=== PATIENT | male | born 2000 | race Caucasian/White ===

== ENCOUNTER 2019-12-29 17:33 | Emergency (ER) | payer OTHER, SELFPAY ==
[2019-12-29 17:36] VITALS: BP 126/44; PULSE 90; RESP 20; TEMP 36.8; O2SAT 99
--- NOTE | 2019-12-29 17:56 | ED.ABDPAIN ---
HPI - Abdominal Pain General Chief Complaint: Abdominal Pain Stated Complaint: low abd pain, blood in stool Time Seen by Provider: 12/29/19 17:35 Source: patient Mode of arrival: ambulatory Limitations: no limitations History of Present Illness HPI narrative: Patient is a 19-year-old male who presents with rectal bleeding noting that he had a stool yesterday and today noting red blood per rectum patient denies any pain or other complaints or similar occurrence in the past has not taken anything for his symptoms and on arrival to emergency department is resting comfortably in the room in no distress Related Data Allergies Allergy/AdvReac Type Severity Reaction Status Date / Time No Known Allergies Allergy Verified 12/29/19 17:47 Review of Systems Review of Systems: All systems reviewed & are unremarkable except as noted in HPI and below PMFSH Surgical History Surgical History (Updated 12/29/19 @ 18:00 by Grant Munson PA-C) H/O abdominal surgery Social History Social History (Updated 12/29/19 @ 18:00 by Grant Munson PA-C) Smoking status: Never smoker Exam Narrative: Exam Narrative: GENERAL: Well-appearing, well-nourished, and in no acute distress. HEAD: Normocephalic, atraumatic. EYES: PERRLA and EOMI. ENT: Nares clear, no rhinorrhea or epistaxis. Mucous membranes moist. Oropharynx without tonsillar hypertrophy exudate or other lesions. CHEST: Clear to auscultation. No respiratory distress. No wheezes rales or rhonchi HEART: Regular rate and rhythm. No murmur heard. Normal peripheral pulses. ABDOMEN: Soft, nontender, nondistended EXTREMITIES: Normal range of motion. No edema. SKIN: Warm, dry, no rash. NEURO: No focal deficits. Alert and oriented x3. PSYCH: Normal mood and affect. Course Course Emergency Course: Patient in the room in no distress aware of case findings treatment plan and diagnosis was hydrated in the emergency department aware of blood results and testing Vital Signs Vital signs: Vital Signs Temperature 98.3 F 12/29/19 17:36 Pulse Rate 90 12/29/19 17:36 Respiratory Rate 20 12/29/19 17:36 Blood Pressure 126/44 L 12/29/19 17:36 Pulse Oximetry 99 12/29/19 17:36 Temperature 98.3 F 12/29/19 17:36 Pulse Rate 90 12/29/19 17:36 Respiratory Rate 20 12/29/19 17:36 Blood Pressure 126/44 L 12/29/19 17:36 Pulse Oximetry 99 12/29/19 17:36 MDM - Abdominal Pain MDM Narrative Medical decision making narrative: Patient in the room in no distress has been hydrated otherwise no high risk changes in the blood work treated for rhabdo which was mild in nature advised to hydrate likely due to his intense workout. Patient will be referred to gastroenterology for follow-up of his rectal bleeding and provided with reasons to return is hemodynamically stable and felt appropriate for outpatient reevaluation Discharge Plan Discharge Clinical Impression: Acute kidney injury, Acute dehydration, Rectal bleed Patient Disposition: Home, Self-Care Condition: Stable Instructions: Antibiotic Form, Rectal Bleeding (ED) Additional Instructions: Follow up with your primary care doctor tommorrow in the next 7 days. Go to ER for worsening pain, nausea/vomitting, fever/chills, chest pain, shortness of breath, blood in stools or urine, etc. or any other concerns. Stay well-hydrated Take any prescribed medications as directed. Follow-up with gastroenterology in the next 7 days If you do not have a drug allergy to tylenol or motrin and can tolerate it then take tylenol or motrin as needed for discomfort/pain. Prescriptions: New famotidine [Pepcid] 20 mg tablet 20 mg PO BID Qty: 10 RF: 0 Follow-up/Referrals: Humberto Davison MD [Physician] - PHYSICIAN,DICER OPERATOR [Primary Care Provider] - Stand Alone Forms: Work/School Release IP
[2019-12-29] MEDS: SODIUM CHLORIDE 0.9% IV 1,000 ML 999 ML IV CONT ×2 (18:00→19:10)
[2019-12-29 18:19] LABS: Basophils Percent Auto 0.6 % (0.2-1.2); Eosinophils Percent Auto 0.6 % (0-4.4); Hematocrit 42.4 % (42.0-52.0); Hemoglobin 14.2 g/dL (14.0-18.0); Immature Granulocyte Absolute 0.02 K/mm3 (0.00-0.031); Immature Granulocyte Percent A 0.3 % (0-0.5); Lymphocytes Absolute Auto 1.21 K/mm3 (0.9-3.2); Lymphocytes Percent Auto 16.7 % (18.3-44.2); Mean Corpuscular HGB Conc 33.5 g/dl (32-36); Mean Corpuscular Hemoglobin 29.4 pg (26-34); Mean Corpuscular Volume 87.8 fl (80-100); Mean Platelet Volume 10.9 fl (7.4-10.4); Monocytes Absolute Auto 0.9 K/mm3 (0.1-0.6); Monocytes Percent Auto 12.3 % (2.6-8.5); Neutrophils Percent Auto 69.5 % (45.5-73.1); Platelet Count Result 223 k/mm3 (150-375); Red Blood Count 4.83 M/mm3 (4.6-6.20); Red Cell Distribution Width 13.2 % (11.5-14.5); White Blood Count 7.2 K/mm3 (4.5-10.0)
[2019-12-29 18:27] LABS: Alanine Aminotransferase 43 U/L (4-50); Albumin Level 4.1 g/dL (3.5-5.1); Alkaline Phosphatase 70 U/L (38-126); Aspartate Amino Transferase 49 U/L (17-59); Bilirubin,Total 0.2 mg/dL (0.2-1.3); Blood Urea Nitrogen 23 mg/dL (9-20); Carbon Dioxide 26 mmol/L (22-30); Chloride 101 mmol/L (98-107); Estimated CRCL calculation 80 ml/min; Estimated Glomerular Filt Rate 55; Glucose 104 mg/dL (75-110); Lipase 43 U/L (23-300); Potassium 3.8 mmol/L (3.4-5.0); Sodium 136 mmol/L (137-145)
[2019-12-29 18:50] LABS: Creatine Kinase 685 U/L (55-170)
[2019-12-29 19:33] LABS: Add Urine Microscopic? YES; Appearance Urine Clear (Clear); Bilirubin Urine Negative (Negative); Blood Urine Negative (Negative); Color Urine Straw (Yellow); Glucose Urine UA Negative (Negative); Ketones Urine Trace mg/dL (Negative); Leukocyte Esterase Ur Negative LEU/UL (Negative); Mucus Urine Rare /lpf; Nitrate Urine Negative (Negative); Protein Urine Negative (Negative); Specific Grav Ur 1.016 (1.001-1.035); Urobilinogen Urine Negative mg/dL (<2.0); WBC Urine 0-3 /hpf
[2019-12-29 19:43] VITALS: BP 118/68; PULSE 68; RESP 16; O2SAT 100
--- NOTE | 2020-01-14 07:19 | PC.NURSE ---
LATE ENTRY This note is being entered to document information to the patient's record. The following information was omitted on [12/29/2019], by [yves]. 1L NS complete at 1944.
== END 2019-12-29 19:44 | disposition home or self-care (01) ==
PROVIDERS: Emergency Medicine Emergency Medical Services; Emergency Provider Emergency Medicine
DX: N17.9 Acute kidney failure, unspecified (principal); K62.5 Hemorrhage of anus and rectum; E86.0 Dehydration
CPT/HCPCS: 36415; 80053; 81001; 82550; 83690; 85025; 96360; 96361; 99283; J7030